=== PATIENT | male | born 1985 | race Caucasian/White ===

== ENCOUNTER 2017-01-23 19:27 | Emergency (ER) | payer SELFPAY ==
[~2017-01-23] VITALS: Ht 188 cm; Wt 99.8 kg
--- NOTE | 2017-01-23 19:29 | NUR ---
PT STATES HAS HAD RT LOWER BACK JUAN FOR ABOUT 3 DAYS.PT STATES PAIN WOKE HIM UP FROM SLEEP.PT STAES PAIN COMES AND GOES.NO DIFFICULTY URINATING.PT STATES IT SEEMS LIKE PAIN COMES WHEN DRINKING A LOT OF FLUIDS, PT IS ALERT, ORIENTED X 4, NO RESP DISTRESS NOTED OR REPORTED UPON ASSESSMENT... MD AT BEDSIDE...
[2017-01-23] MEDS ORDERED: MORPHINE SULFATE 2 MG/1 ML DISP.SYRIN IV ONE (20:00)
[2017-01-23] MEDS ORDERED: ONDANSETRON 4 MG/2 ML VIAL IV ONE (20:00)
[2017-01-23] MEDS ORDERED: IV NORMAL SALINE 1000 ML BAG IV ONE (20:00)
[2017-01-23 20:20] LABS: BASOPHILS # (AUTO) 0.1 K/uL (0.0-8.0); BASOPHILS % (AUTO) 0.5 % (0.0-2.0); EOSINOPHILS # (AUTO) 0.2 K/uL (0.0-0.7); EOSINOPHILS % (AUTO) 1.9 % (0.0-7.0); HEMATOCRIT 44.1 % (40-50); HEMOGLOBIN 14.6 G/DL (14.0-18.0); LYMPHOCYTES % (AUTO) 20.1 % (20.5-51.5); MEAN CORPUSCULAR HEMOGLOBIN 28.5 UUG (27.0-31.0); MEAN CORPUSCULAR HGB CONC 33 g/dL (32.0-37.0); MEAN CORPUSCULAR VOLUME 85.9 FL (82.0-92.0); MONOCYTES # (AUTO) 0.8 K/UL (0.1-1.30); MONOCYTES % (AUTO) 7.5 % (0.0-11.0); NEUTROPHILS # (AUTO) 7.1 K/UL (1.8-8.9); PLATELET COUNT (AUTO) 201 K/UL (150-450); RED BLOOD CELL COUNT(AUTO) 5.13 MIL/UL (4.7-6.1); WHITE BLOOD COUNT (AUTO) 10.2 K/UL (4.0-11.2)
[2017-01-23] MEDS ORDERED: MORPHINE SULFATE 4 MG/1 ML DISP.SYRIN ONE (20:26)
[2017-01-23] MEDS ORDERED: ONDANSETRON 4 MG/2 ML VIAL ONE (20:26)
[2017-01-23 20:32] LABS: BILIRUBIN,DIRECT 0.1 mg/dL (0.0-0.2); BILIRUBIN,TOTAL 0.6 mg/dL (0.2-1.0); POTASSIUM 3.8 mmol/L (3.5-5.1)
[2017-01-23 21:07] LABS: *BILIRUBIN,URIN NEGATIVE (NEGATIVE); *BLOOD, URINE 3+ (NEGATIVE); *COLOR,URINE YELLOW (YELLOW); *KETONES,URINE NEGATIVE (NEGATIVE); *PROTEIN,URINE TRACE (NEGATIVE); *UROBILINOGEN,URINE 0.2 E.U./dl (NORMAL); LEUKOCYTE ESTERASE ,URINE TRACE (NEGATIVE); NITRITE, URINE NEGATIVE (NEGATIVE); PH,URINE 5.5 (5.0-8.0); UGLUCOSE NEGATIVE (NEGATIVE)
[2017-01-23 21:08] LABS: *CLARITY,URINE HAZY (CLEAR)
[2017-01-23 21:14] LABS: MUCUS,URINE MANY /LPF (0-FEW); SQUAMOUS EPITHELIAL CELL,UR FEW /HPF (NONE SEEN)
--- NOTE | 2017-01-23 21:54 | NUR ---
Patient discharged to home in stable conditon. Written and verbal after care instructions given. Patient verbalizes understanding of instructions. Pt walked out of ER unassisted with belongings and partner at side...
[2017-01-23 21:56] VITALS: BP 127/95
[2017-01-24] MEDS ORDERED: NORCO PO (14:31)
== END 2017-01-23 21:57 | disposition home or self-care (01) ==
LOC: ER 19:31
DX: N13.2 Hydronephrosis with renal and ureteral calculous obstruction (principal); F12.90 Cannabis use, unspecified, uncomplicated; J45.909 Unspecified asthma, uncomplicated; Z88.0 Allergy status to penicillin; Z91.030 Bee allergy status
CPT/HCPCS: 36415; 83690; 85025; A4663; J2270; J2405; J7030

== ENCOUNTER 2017-01-24 14:25 | Emergency (ER) | payer SELFPAY ==
[~2017-01-24] VITALS: Ht 188 cm; Wt 99.8 kg
[2017-01-24] MEDS ORDERED: NORCO PO (14:31)
[2017-01-24] MEDS: KETOROLAC TROMETHAMINE 30 MG INJ IVP ONE (14:55)
[2017-01-24 14:59] LABS: BASOPHILS % (AUTO) 0.2 % (0.0-2.0); EOSINOPHILS # (AUTO) 0.1 K/uL (0.0-0.7); EOSINOPHILS % (AUTO) 0.7 % (0.0-7.0); HEMATOCRIT 43.3 % (40-50); HEMOGLOBIN 14.6 G/DL (14.0-18.0); LYMPHOCYTES # (AUTO) 1.1 K/UL (0.8-4.8); LYMPHOCYTES % (AUTO) 7.5 % (20.5-51.5); MEAN CORPUSCULAR HEMOGLOBIN 29.1 UUG (27.0-31.0); MEAN CORPUSCULAR HGB CONC 34 g/dL (32.0-37.0); MEAN CORPUSCULAR VOLUME 86.2 FL (82.0-92.0); MONOCYTES # (AUTO) 0.6 K/UL (0.1-1.30); MONOCYTES % (AUTO) 4.4 % (0.0-11.0); NEUTROPHILS # (AUTO) 12.8 K/UL (1.8-8.9); NEUTROPHILS % (AUTO) 87.2 % (38.5-71.5); PLATELET COUNT (AUTO) 214 K/UL (150-450); RED BLOOD CELL COUNT(AUTO) 5.02 MIL/UL (4.7-6.1); WHITE BLOOD COUNT (AUTO) 14.6 K/UL (4.0-11.2)
[2017-01-24] MEDS: IV NORMAL SALINE 1000 ML BAG IV ONE (15:00)
[2017-01-24] MEDS: ONDANSETRON 4 MG/2 ML VIAL IV ONE (15:00)
[2017-01-24] MEDS: HYDROMORPHONE 1 MG/1 ML DISP.SYRIN IV ONE (15:03)
[2017-01-24] MEDS ORDERED: KETOROLAC TROMETHAMINE 30 MG INJ ONE (15:06)
[2017-01-24] MEDS ORDERED: HYDROMORPHONE 1 MG/1 ML DISP.SYRIN ONE (15:06)
[2017-01-24] MEDS ORDERED: ONDANSETRON 4 MG/2 ML VIAL ONE (15:06)
[2017-01-24 15:14] LABS: CREATININE 1.4 mg/dL (0.6-1.3); POTASSIUM 3.7 mmol/L (3.5-5.1)
--- NOTE | 2017-01-24 15:34 | NUR ---
PATIENT WAS SEEN BY DR BEE FOR C/O FLANK PAIN. IV PLACED, LABS DRAWN. URINE SENT TO LAB. MEDS GIVEN ORDERED. PATIENT STATES PAIN HAS DIMINISHED.
[2017-01-24 15:41] LABS: *BILIRUBIN,URIN NEGATIVE (NEGATIVE); *BLOOD, URINE 2+ (NEGATIVE); *CLARITY,URINE SLIGHTLY CLOUDY (CLEAR); *COLOR,URINE YELLOW (YELLOW); *KETONES,URINE 2+ (NEGATIVE); *PROTEIN,URINE 1+ (NEGATIVE); LEUKOCYTE ESTERASE ,URINE TRACE (NEGATIVE); NITRITE, URINE NEGATIVE (NEGATIVE); UGLUCOSE NEGATIVE (NEGATIVE)
[2017-01-24 15:47] LABS: BACTERIA,URINE FEW /HPF (NONE SEEN); RBC,URINE 50-80 /HPF (0-3); SQUAMOUS EPITHELIAL CELL,UR FEW /HPF (NONE SEEN)
--- NOTE | 2017-01-24 17:15 | NUR ---
PATIENT STATES HIS PAIN IS MUCH LESS NOW AND DENIES NAUSEA.
--- NOTE | 2017-01-24 17:29 | NUR ---
IV DC'D, CATHETER TIP INTACT, PRESSURE APPLIED, DRESSING APPLIED. DC, RX AND FOLLOW UP INSTRUCTIONS GIVEN AND EXPLAINED TO PATIENT WHO STATES HE UNDERSTANDS ALL INSTRUCTIONS INCLUDING PRECAUTIONS WHILE ON NARCOTIC MEDS.
[2017-01-24 17:30] VITALS: BP 119/71
== END 2017-01-24 17:31 | disposition home or self-care (01) ==
LOC: ER 14:25
DX: N20.1 Calculus of ureter (principal); Z87.442 Personal history of urinary calculi; Z88.0 Allergy status to penicillin; Z91.030 Bee allergy status; J45.909 Unspecified asthma, uncomplicated
CPT/HCPCS: 36415; 85025; A4663; J1170; J1885; J2405; J7030